=== PATIENT | male | born 1960 | race African-American/Black ===

== ENCOUNTER 2016-06-05 09:28 | Emergency (ER) ==
[2016-06-05 09:37] VITALS: BP 154/86
[2016-06-05 09:49] LABS: MANUAL DIFF NEEDED? NO
[2016-06-05 09:52] LABS: BASO% 0.4 % (0.0-0.8); EOS# 0.09 X1000 (0.0-0.7); EOS% 1.3 % (0.0-10.0); HEMATOCRIT 46.7 % (42.0-52.0); HEMOGLOBIN 15.6 g/dL (14.0-18.0); IMM GRAN# 0.02 X1000 (0.0-0.04); IMM GRAN% 0.3 % (0.0-0.5); LYMPH# 2.05 X1000 (1.2-3.4); LYMPH% 28.9 % (20.5-51.1); MCH 28.8 PG (27-31); MCHC 33.4 g/dL (33-37); MCV 86.3 FL (81-99); MONO# 0.56 X1000 (0.11-0.59); MONO% 7.9 % (1.7-9.3); MPV 10.4 FL (7.4-10.4); NEUT% 61.2 % (42.2-75.2); PLT 187 X1000 (130-400); RBC 5.41 XMIL (4.7-6.1)
--- NOTE | 2016-06-05 10:57 | PROVIDER DOCUMENTATION ---
HPI-General Adult - General Chief Complaint: Extremity Pain Stated Complaint: EXTREMITY PAIN Time Seen by Provider: 06/05/16 10:39 Source: patient Allergies/Adverse Reactions: Patient Allergies Allergy/AdvReac Type Severity Reaction Status Date / Time No Known Allergies Allergy Verified 09/21/14 13:26 Home Medications: Home Medication List Medication Instructions Recorded Confirmed Last Taken Type Clotrimazole/Bmethasone Lotion 1 applicatn TOP BID #1 packet 04/12/16 Unknown Rx [Lotrisone Lotion] Sulfamethoxazole/Trimethoprim 1 each PO BID #20 tablet 04/12/16 Unknown Rx [Bactrim Ds Tablet] Acetaminophen with Codeine 1 each PO Q6H PRN PRN #12 tablet 06/05/16 Unknown Rx [Tylenol with Codeine #3] Methocarbamol [Robaxin] 500 mg PO BID PRN #20 tablet 06/05/16 Unknown Rx Prednisone 20 mg PO DAILY #10 tablet 06/05/16 Unknown Rx - History of Present Illness -Gen Adult Nature of Presenting Problems: 55 yo male presents to ER with c/o pain to right levator scapula that radiates into right arm. He states that the pain is similar to arthritis pain he has in left knee. 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 He does have a chronic cough but smokes. Location of Pain/Injury: reports: upper extremity (right shoulder) Pain Radiation: reports: arm(s) (right arm) Quality of Pain: reports: aching Severity: reports: mild Onset/Duration: reports: 1 week ago Timing: reports: intermittent Context/Activities at Onset: reports: moderate activity (repetative) Modifying Factors: improves with: other (siting still against something pain goes away) Associated Symptoms: reports: denies symptoms Similar Symptoms Previously?: Yes Recently seen or treated by another doctor?: No Review of Systems - Adult - REVIEW OF SYSTEMS - ADULT Constitutional: reports: no symptoms reported Eyes: reports: no symptoms reported Ears, Nose, Mouth & Throat: reports: no symptoms reported Cardiovascular: reports: no symptoms reported Respiratory: reports: no symptoms reported Gastrointestinal: reports: no symptoms reported Genitourinary: reports: no symptoms reported Musculoskeletal: reports: see HPI, bone pain Integumentary: reports: no symptoms reported Neurological: reports: no symptoms reported Psychiatric: reports: no symptoms reported Endocrine: reports: no symptoms reported Hematologic/Lymphatic: reports: no symptoms reported Allergic/Immunologic: reports: no symptoms reported All Other Systems: Reviewed and Negative Past History - Adult - PAST MEDICAL HISTORY-ADULT Review of Records: reports: Old Records Reviewed, Nursing Assessment Review, Medications Reviewed, Social history reviewed & non-contributory. Major Childhood Illnesses: reports: denies history Cardiovascular: reports: denies history Respiratory: reports: denies history Gastrointestinal: reports: denies history Genitourinary: reports: denies history Musculoskeletal: reports: other (gout) Neurological: reports: denies history Psychiatric: reports: psychiatric problems Endocrine/Immune: reports: denies history Other Conditions: reports: denies history - PRIOR SURGERIES/PROCEDURES Surgical/Procedure History: reports: none - PRIOR HOSPITALIZATIONS Prior Hospitalizations: reports: none - IMMUNIZATION STATUS Childhood Immunizations: See Nurse Assessment Flu Vaccine: See Nurse Assessment - FAMILY HISTORY Family History: reviewed, not pertinent - SOCIAL HISTORY Smoking: cigarettes, greater than 1 pack/day (1 ppd) Provider spent 3-5 mins advising pt. on dangers of tobacco.: Discussed manners to quit use, and f/u contacts for add'l counseling. Substance Use: none/never, denies Alcohol Use Frequency: never Living Situation: family Physical Exam-General - PHYSICAL EXAM-ADULT Initial Vital Signs Reviewed: Yes - CONSTITUTIONAL General Appearance: appears well, alert, no apparent distress - EYES Eyes: PERRL/EOMI, pink conjunctivae, fundi clear, no AV nicking - HEAD, EARS, NOSE, MOUTH & THROAT HENMT: normocephalic/atraumatic, moist mucous membranes, normal ENT inspection, TMs normal, pharynx normal - NECK Neck: non-tender, full range of motion, supple - RESPIRATORY Respiratory: no respiratory distress - MUSCULOSKELETAL Back Exam: normal inspection Extremity: normal range of motion (with no pain in right shoulder/arm), tenderness (to palpation of right levatorscapula) Peripheral Pulses: radial (R): 2+, radial (L): 2+ - SKIN Integumentary: normal color, normal turgor, warm/dry - NEUROLOGIC Neurologic: grossly normal - PSYCHIATRIC Psych/Mental Status: normal mood/affect, normal thought content, normal thought process, oriented x 3 Progress - PLAN OF CARE/RESULTS Progress/Plan/Lab Results: 1050-Discussed results/dx/tx/discharge and the need to acquire a PCP with patient and family; they verbalized understanding. Laboratory Tests 06/05/16 06/05/16 06/05/16 09:37 09:45 09:45 WBC 7.09 RBC 5.41 Hgb 15.6 Hct 46.7 MCV 86.3 MCH 28.8 MCHC 33.4 RDW Std Deviation 14.3 Plt Count 187 MPV 10.4 Immature Gran % (Auto) 0.3 Neut % (Auto) 61.2 Lymph % (Auto) 28.9 Spink % (Auto) 7.9 Eos % (Auto) 1.3 Baso % (Auto) 0.4 Immature Gran # (Auto) 0.02 Neut # (Auto) 4.34 Lymph # (Auto) 2.05 Spink # (Auto) 0.56 Eos # (Auto) 0.09 Baso # (Auto) 0.03 Uric Acid 5.0 Influenza A (Rapid) NEGATIVE Influenza B (Rapid) NEGATIVE Orders Category Date Time Status CHEST-2 VIEWS [RAD] Stat Exams 06/05/16 09:37 Taken CBC WITH DIFF [HEME] Stat Lab 06/05/16 09:45 Completed Flu [INFLUENZA SCREEN PL] Stat Lab 06/05/16 09:37 Completed URIC ACID [CHEM] Stat Lab 06/05/16 09:45 Completed Vital Signs - 24 hr 06/05/16 09:32 Temperature 100.3 F H Pulse Rate 79 Respiratory 18 Rate Blood Pressure 154/86 O2 Sat by Pulse 97 Oximetry - XRAY 1 XRAY Study: Chest Impression: Normal (NAD) XRAY Interpretation: Interpreted by Dr. Wakefield Departure - Departure Time of Disposition Order: 11:00 DIAGNOSIS: Tendonitis, Arthritis, Muscle spasm Disposition: HOME 01 Certified Medical Emergency: Emergent Condition: Good Additional Instructions: Obtain a primary care doctor. Take medications as prescribed. Apply ice to area for 20 minutes several times a day. ED Follow Up Instructions: You have been treated by a care provider in the Emergency Department. These instructions are being provided to you so you can have an understanding of how to care for yourself upon discharge. Upon discharge from the Emergency Department, you are responsible for making arrangements for follow-up care by a physician of your choice. Take all prescribed medications as directed. Return to the Emergency Department immediately for any new or worsening symptoms. You may call the Physician Referral phone number at [phone] to obtain a list of Physicians who are taking new patients. Prescriptions: Prednisone 20 mg PO DAILY #10 tablet Methocarbamol [Robaxin] 500 mg PO BID PRN #20 tablet PRN Reason: Pain Acetaminophen with Codeine [Tylenol with Codeine #3] 1 each PO Q6H PRN PRN #12 tablet PRN Reason: Pain Attestation - Physician/ JOHNATHAN Attestation Patient care was provided by Advanced Practice Provider:: Yes Advanced Practice Provider:: Toma Boudreaux Advanced Practice Provider documentation review:: The Mid-level provider documentation, treatment plan and medical decision making was reviewed by the physician who agrees with all treatment and medical decision making by the MLP.
--- NOTE | 2016-06-05 11:56 | Diag Imaging Result Document ---
PROCEDURE NAME: CHEST-2 VIEWS - 06/05/2016 PA AND LATERAL RADIOGRAPH OF THE CHEST: COMPARISON: None available. FINDINGS: There is minimal subsegmental atelectasis versus scarring at the periphery of the right lower lung zone. The lungs are clear otherwise. There is no definite pleural fluid collection. Cardiac silhouette and central vasculature are grossly unremarkable. IMPRESSION: Trace atelectasis versus scarring at the right lower lung zone. No definite acute pathology, otherwise.
== END 2016-06-05 11:46 | disposition home or self-care (01) ==
LOC: P.ED 09:28
DX: M75.91 Shoulder lesion, unspecified, right shoulder (principal); M19.011 Primary osteoarthritis, right shoulder; M62.838 Other muscle spasm; M25.511 Pain in right shoulder; M79.601 Pain in right arm; R05 Cough; M17.12 Unilateral primary osteoarthritis, left knee; F17.210 Nicotine dependence, cigarettes, uncomplicated; Z71.6 Tobacco abuse counseling
CPT/HCPCS: 36415; 71020; 84550; 85025; 87804; 99283